=== PATIENT | female | born 1970 | race African-American/Black ===

== ENCOUNTER 2018-07-03 15:06 | Emergency (ER) | payer MEDICAID ==
[2018-07-03] MEDS ORDERED: ONDANSETRON 4 MG TAB.RAPDIS PO ONE (16:35)
--- NOTE | 2018-07-03 16:35 | ER Document Report ---
ED Medical Screen (RME) - General Chief Complaint: Weakness Stated Complaint: WEAKNESS Time Seen by Provider: 07/03/18 16:08 Primary Care Provider: LAWSON SOMERS MD [Primary Care Provider] - Follow up as needed Notes: 48-year-old female states she experienced a seizure at 1230 this afternoon. She states that her separate episode in 2 weeks. She is also very weak. Patient states that every episode she has an aura and each time it is different. She could not clarify whether one preceded this most recent seizure. She states she saw a neurologist 2 years ago, had an EEG done, and was told she does not have epilepsy but was prescribed "Adderall and something for sleep ". She denies any fevers or chills, complains of blurred vision, complains of dizziness, lightheadedness/ BLE weakness/ and feeling "loopy ". I have greeted and performed a rapid initial assessment of this patient. A comprehensive ED assessment and evaluation of the patient, analysis of test results and completion of medical decision making process will be conducted by an additional ED providers. TRAVEL OUTSIDE OF THE [place] IN LAST 30 DAYS: No - Related Data Allergies/Adverse Reactions: Penicillins Allergy (Verified 11/23/14 23:33) Past Medical History - Social History Frequency of alcohol use: Occasional Drug Abuse: None Neurological Medical History: Reports: Hx Seizures Renal/ Medical History: Denies: Hx Peritoneal Dialysis Past Surgical History: Reports: Hx Tubal Ligation - Immunizations Hx Diphtheria, Pertussis, Tetanus Vaccination: Yes Physical Exam - Vital signs Vitals: Temp Pulse Resp BP Pulse Ox 98.7 F 88 16 120/71 97 07/03/18 15:14 07/03/18 15:14 07/03/18 15:14 07/03/18 15:14 07/03/18 15:14 - Neurological Cognition: Inattentive Manning Coma Scale Eye Opening: Spontaneous Manning Coma Scale Verbal: Oriented Ximena Coma Scale Motor: Obeys Commands Manning Coma Scale Total: 15 Speech: Normal Cranial nerves: Normal Motor strength normal: LUE - 4/5 effort dependent, RUE - 4/5 effort dependent, LLE - 3/5 effort dependent, RLE - 3/5 effort dependent Additional motor exam normals: Equal detention worker - 4/5, Dorsiflexion - Did not participate secondary to effort Course - Vital Signs Vital signs: Temp Pulse Resp BP Pulse Ox 98.7 F 88 16 120/71 97 07/03/18 15:14 07/03/18 15:14 07/03/18 15:14 07/03/18 15:14 07/03/18 15:14 Doctor's Discharge - Discharge Referrals: LAWSON SOMERS MD [Primary Care Provider] - Follow up as needed
[2018-07-03 17:38] LABS: APPEARANCE,URINE CLEAR; BILIRUBIN,URINE NEGATIVE (NEGATIVE); COLOR,URINE YELLOW; GLUCOSE, URINE NEGATIVE (NEGATIVE); KETONES,URINE NEGATIVE (NEGATIVE); LEUKOCYTE ESTERASE,URINE NEGATIVE (NEGATIVE); NITRITE,URINE NEGATIVE (NEGATIVE); PROTEIN,URINE NEGATIVE (NEGATIVE); URINE SPECIFIC GRAVITY 1.024
[2018-07-03 17:51] LABS: URINE AMPHETAMINES SCREEN UNCONFIRMED POSITIVE; URINE BARBITURATES SCREEN NEGATIVE; URINE BENZODIAZEPINES SCREEN NEGATIVE; URINE COCAINE SCREEN NEGATIVE; URINE MARIJUANA (THC) SCREEN UNCONFIRMED POSITIVE; URINE METHADONE SCREEN NEGATIVE; URINE PHENCYCLIDINE SCREEN NEGATIVE
--- NOTE | 2018-07-03 19:39 | ER Document Report ---
ED General - General Chief Complaint: Weakness Stated Complaint: WEAKNESS Time Seen by Provider: 07/03/18 16:08 Primary Care Provider: LAWSON SOMERS MD [Primary Care Provider] - Follow up as needed LISETH GARDINER MD [NO LOCAL MD] - Follow up in 3-5 days Notes: 48-year-old female patient emergency department for evaluation of seizure. Patient has a known history of seizures. States that she has been to the beach today. Had some marijuana. Had a seizure while her daughter was driving her back into town. Has not had a seizure in a long time. Currently not on any medications. Denies any injuries. Feels back to normal at this time. States that she was prescribed some Adderall for adult ADHD but did not like the way it made her feel. TRAVEL OUTSIDE OF THE [place] IN LAST 30 DAYS: No - HPI Onset: Just prior to arrival Quality of pain: No pain Severity: Mild Pain Level: Denies Associated symptoms: None - Related Data Allergies/Adverse Reactions: Penicillins Allergy (Verified 11/23/14 23:33) Past Medical History - General Information source: Patient - Social History Smoking Status: Current Every Day Smoker Frequency of alcohol use: Occasional Drug Abuse: None Lives with: Family Family History: Reviewed & Not Pertinent Patient has suicidal ideation: No Patient has homicidal ideation: No Neurological Medical History: Reports: Hx Seizures Renal/ Medical History: Denies: Hx Peritoneal Dialysis Past Surgical History: Reports: Hx Tubal Ligation - Immunizations Hx Diphtheria, Pertussis, Tetanus Vaccination: Yes Review of Systems - Review of Systems Notes: Constitutional: denies: Chills, Diaphoresis, Fever, Malaise, Weakness EENT: denies: Eye discharge, Blurred vision, Tearing, Double vision, Nose congestion, Nose discharge, Throat swelling, Mouth pain Cardiovascular: denies: Palpitations, Heart racing, Orthopnea, Dyspnea, Chest pain Respiratory: denies: Cough, Hurts to breathe, Wheezing, Shortness of breath Gastrointestinal: denies: Abdominal pain, Diarrhea, Nausea, Vomiting, Black stools, bright red blood in stool Genitourinary: denies: Burning, Dysuria, Discharge, Frequency, Flank pain, Hematuria Musculoskeletal: denies: Joint pain, Joint swelling, Muscle pain, Muscle stiffness, back pain Hematologic/Lymphatic: denies: Anemia, Easy bleeding, Easy bruising, Blood clots Neurological/Psychological: denies: Confusion, Dementia, Depression, Loss of consciousness. Positive for seizure Skin: No lesions, no masses, no skin breakdown, no abscesses Physical Exam - Vital signs Vitals: Temp Pulse Resp BP Pulse Ox 98.7 F 88 16 120/71 97 07/03/18 15:14 07/03/18 15:14 07/03/18 15:14 07/03/18 15:14 07/03/18 15:14 Interpretation: Normal - General General appearance: Appears well, Alert - HEENT Head: Normocephalic, Atraumatic Eyes: Normal Pupils: PERRL - Respiratory Respiratory status: No respiratory distress Chest status: Nontender Breath sounds: Normal Chest palpation: Normal - Cardiovascular Rhythm: Regular Heart sounds: Normal auscultation Murmur: No - Abdominal Inspection: Normal Distension: No distension Bowel sounds: Normal Tenderness: Nontender Organomegaly: No organomegaly - Back Back: Normal, Nontender - Extremities General upper extremity: Normal inspection, Nontender, Normal color, Normal ROM, Normal temperature General lower extremity: Normal inspection, Nontender, Normal color, Normal ROM, Normal temperature, Normal weight bearing. No: Lew's sign - Neurological Neuro grossly intact: Yes Cognition: Normal Orientation: AAOx4 Ximena Coma Scale Eye Opening: Spontaneous Ximena Coma Scale Verbal: Oriented Mackay Coma Scale Motor: Obeys Commands Mackay Coma Scale Total: 15 Speech: Normal Motor strength normal: LUE, RUE, LLE, RLE Sensory: Normal - Psychological Associated symptoms: Normal affect, Normal mood - Skin Skin Temperature: Warm Skin Moisture: Dry Skin Color: Normal Course - Re-evaluation Re-evalutation: 07/03/18 21:27 Laboratory 07/03/18 07/03/18 07/03/18 16:50 16:50 20:29 WBC 7.9 RBC 4.79 Hgb 14.8 Hct 43.1 MCV 90 MCH 30.9 MCHC 34.4 RDW 12.9 Plt Count 357 Seg Neutrophils % 55.7 Lymphocytes % 33.5 Monocytes % 5.6 Eosinophils % 4.7 Basophils % 0.5 Absolute Neutrophils 4.4 Absolute Lymphocytes 2.7 Absolute Monocytes 0.4 Absolute Eosinophils 0.4 Absolute Basophils 0.0 Sodium Potassium Chloride Carbon Dioxide Anion Gap BUN Creatinine Est GFR ( Amer) Est GFR (Non-Af Amer) Glucose Calcium Total Bilirubin Direct Bilirubin Neonat Total Bilirubin Neonat Direct Bilirubin Neonat Indirect Bili AST ALT Alkaline Phosphatase Total Protein Albumin Urine Color YELLOW Urine Appearance CLEAR Urine pH 6.0 Ur Specific [place] 1.024 Urine Protein NEGATIVE Urine Glucose (UA) NEGATIVE Urine Ketones NEGATIVE Urine Blood NEGATIVE Urine Nitrite NEGATIVE Urine Bilirubin NEGATIVE Urine Urobilinogen 2.0 H Ur Leukocyte Esterase NEGATIVE Urine WBC (Auto) 0 Urine RBC (Auto) 1 Squamous Epi Cells Auto 2 Urine Mucus (Auto) MANY Urine Ascorbic Acid NEGATIVE Urine HCG, Qual NEGATIVE Urine Opiates Screen NEGATIVE Urine Methadone Screen NEGATIVE Ur Barbiturates Screen NEGATIVE Ur Phencyclidine Scrn NEGATIVE Ur Amphetamines Screen UNCONFIRMED POSITIVE U Benzodiazepines Scrn NEGATIVE Urine Cocaine Screen NEGATIVE U Marijuana (THC) Screen UNCONFIRMED POSITIVE 07/03/18 20:29 WBC RBC Hgb Hct MCV MCH MCHC RDW Plt Count Seg Neutrophils % Lymphocytes % Monocytes % Eosinophils % Basophils % Absolute Neutrophils Absolute Lymphocytes Absolute Monocytes Absolute Eosinophils Absolute Basophils Sodium 139.0 Potassium 4.3 Chloride 105 Carbon Dioxide 25 Anion Gap 9 BUN 13 Creatinine 0.65 Est GFR ( Amer) > 60 Est GFR (Non-Af Amer) > 60 Glucose 89 Calcium 9.5 Total Bilirubin 0.3 Direct Bilirubin 0.1 Neonat Total Bilirubin Not Reportable Neonat Direct Bilirubin Not Reportable Neonat Indirect Bili Not Reportable AST 23 ALT 48 Alkaline Phosphatase 87 Total Protein 6.9 Albumin 4.1 Urine Color Urine Appearance Urine pH Ur Specific [place] Urine Protein Urine Glucose (UA) Urine Ketones Urine Blood Urine Nitrite Urine Bilirubin Urine Urobilinogen Ur Leukocyte Esterase Urine WBC (Auto) Urine RBC (Auto) Squamous Epi Cells Auto Urine Mucus (Auto) Urine Ascorbic Acid Urine HCG, Qual Urine Opiates Screen Urine Methadone Screen Ur Barbiturates Screen Ur Phencyclidine Scrn Ur Amphetamines Screen U Benzodiazepines Scrn Urine Cocaine Screen U Marijuana (THC) Screen 07/03/18 21:29 Patient with long-standing history of seizures. Witnessed seizure today. Marijuana positive. Amphetamine positive. Patient advised to not engage in this activity. At this time I will recommend she follow-up with a neurologist as soon as possible. Avoid driving - Vital Signs Vital signs: Temp Pulse Resp BP Pulse Ox 97.8 F 65 16 114/73 98 07/03/18 21:43 07/03/18 21:43 07/03/18 15:14 07/03/18 21:43 07/03/18 21:43 - Laboratory Result Diagrams: 07/03/18 20:29 07/03/18 20:29 Laboratory results interpreted by me: 07/03/18 16:50 Urine Urobilinogen 2.0 H Discharge - Discharge Clinical Impression: Seizure Condition: Good Disposition: HOME, SELF-CARE Instructions: Seizure, Known Epileptic ([facility]) Additional Instructions: No driving until cleared by neurologist. Take medication as prescribed. Follow-up with your neurologist as soon as possible. Prescriptions: Levetiracetam [Keppra 500 mg Tablet] 500 mg PO Q12 30 Days #60 tablet Forms: Return to Work Referrals: LAWSON SOMERS MD [Primary Care Provider] - Follow up as needed LISETH GARDINER MD [NO LOCAL MD] - Follow up in 3-5 days
[2018-07-03 20:40] LABS: ABSOLUTE EOSINOPHILS # (AUTO) 0.4 10^3/uL (0.0-0.6); ABSOLUTE LYMPHOCYTES (AUTO) 2.7 10^3/uL (0.5-4.7); ABSOLUTE MONOCYTES (AUTO) 0.4 10^3/uL (0.1-1.4); ABSOLUTE NEUT (AUTO) 4.4 10^3/uL (1.7-8.2); BASOPHILS % (AUTO) 0.5 % (0-2); EOSINOPHILS % (AUTO) 4.7 % (0-6); HEMATOCRIT 43.1 % (36.0-47.0); HEMOGLOBIN 14.8 g/dL (12.0-15.5); LYMPHOCYTES % (AUTO) 33.5 % (13-45); MEAN CORPUSCULAR HEMOGLOBIN 30.9 pg (27.0-33.4); MEAN CORPUSCULAR HGB CONC 34.4 g/dL (32.0-36.0); MEAN CORPUSCULAR VOLUME 90 fl (80-97); MONOCYTES % (AUTO) 5.6 % (3-13); PLATELET COUNT 357 10^3/uL (150-450); RED BLOOD COUNT 4.79 10^6/uL (3.72-5.28); RED CELL DISTRIBUTION WIDTH 12.9 % (11.5-14.0); SEGMENTED NEUTROPHILS % (AUTO) 55.7 % (42-78); TOTAL CELLS COUNTED % (AUTO) 100 %; WHITE BLOOD COUNT 7.9 10^3/uL (4.0-10.5)
[2018-07-03 20:55] LABS: ALANINE AMINOTRANSFERASE 48 U/L (9-52); ALBUMIN 4.1 g/dL (3.5-5.0); ALKALINE PHOSPHATASE 87 U/L (38-126); ANION GAP 9 (5-19); ASPARTATE AMINO TRANSFERASE 23 U/L (14-36); BILIRUBIN,DIRECT 0.1 mg/dL (0.0-0.4); BILIRUBIN,TOTAL 0.3 mg/dL (0.2-1.3); BLOOD UREA NITROGEN 13 mg/dL (7-20); CALCIUM 9.5 mg/dL (8.4-10.2); CARBON DIOXIDE 25 mmol/L (22-30); CHLORIDE 105 mmol/L (98-107); GLUCOSE 89 mg/dL (75-110); POTASSIUM 4.3 mmol/L (3.6-5.0); TOTAL PROTEIN 6.9 g/dL (6.3-8.2)
[2018-07-03] MEDS ORDERED: LEVETIRACETAM 500 MG TABLET PO ONE (21:32)
[2018-07-03 21:48] VITALS: BP 114/73
== END 2018-07-03 22:15 | disposition home or self-care (01) ==
LOC: ER 15:06
DX: R56.9 Unspecified convulsions (principal); F17.200 Nicotine dependence, unspecified, uncomplicated
CPT/HCPCS: 99284; 36415; 85025; 81025; 80053; 81001; 80307; S0119

== ENCOUNTER 2018-07-06 14:35 | Emergency (ER) | payer SELFPAY ==
[2018-07-06] MEDS ORDERED: ONDANSETRON HCL INJ/PF 4 MG/2 ML SDV IV ONE (15:50)
[2018-07-06] MEDS ORDERED: KETOROLAC TROMETHAMINE INJ/PF 30 MG/1 ML SDV IV ONE (15:50)
[2018-07-06] MEDS ORDERED: MORPHINE SULFATE 10 MG/ML INJ IV ONE (15:50)
--- NOTE | 2018-07-06 15:53 | ER Document Report ---
ED Medical Screen (RME) - General Chief Complaint: Lower Abdominal Pain Stated Complaint: ABDOMINAL PAIN Time Seen by Provider: 07/06/18 15:50 Primary Care Provider: LAWSON SOMERS MD [Primary Care Provider] - Follow up as needed Notes: Chief complaint: Abdominal pain History of complain:( obtained from----patient) 48 years old female with a history of seizure disorder not taking any medication presents today with sudden onset of sharp lower abdominal pain of moderate to severe in intensity. Associated with nausea no vomiting. No dysuria frequency urgency denies any diarrhea. PHYSICAL EXAMINATION: GENERAL: Seems to be in moderate to severe discomfort HEAD: Atraumatic, normocephalic. EYES: Pupils equal round and reactive to light, extraocular movements intact, conjunctiva are normal. ENT: Nares patent, oropharynx clear without exudates. Moist mucous membranes. NECK: Normal range of motion, supple without lymphadenopathy LUNGS: Breath sounds clear to auscultation bilaterally and equal. No wheezes rales or rhonchi. HEART: Regular rate and rhythm without murmurs ABDOMEN: Soft, diffuse lower abdominal tenderness nondistended abdomen. No guarding, no rebound. No masses appreciated. Examination of genitals-deferred Dictation was performed using [employer] voice recognition software TRAVEL OUTSIDE OF THE [place] IN LAST 30 DAYS: No - Related Data Allergies/Adverse Reactions: Penicillins Allergy (Verified 07/06/18 14:36) Past Medical History - Social History Chew tobacco use (# tins/day): No Frequency of alcohol use: Social Drug Abuse: Marijuana Neurological Medical History: Reports: Hx Seizures Renal/ Medical History: Denies: Hx Peritoneal Dialysis Past Surgical History: Reports: Hx Tubal Ligation - Immunizations Hx Diphtheria, Pertussis, Tetanus Vaccination: Yes Physical Exam - Vital signs Vitals: Temp Pulse Resp BP Pulse Ox 98.7 F 76 18 112/71 100 07/06/18 14:44 07/06/18 14:44 07/06/18 14:44 07/06/18 14:44 07/06/18 14:44 Course - Vital Signs Vital signs: Temp Pulse Resp BP Pulse Ox 98.7 F 76 18 112/71 100 07/06/18 14:44 07/06/18 14:44 07/06/18 14:44 07/06/18 14:44 07/06/18 14:44 Doctor's Discharge - Discharge Referrals: LAWSON SOMERS MD [Primary Care Provider] - Follow up as needed
[2018-07-06 16:51] LABS: ABSOLUTE BASOPHILS # (AUTO) 0.1 10^3/uL (0.0-0.2); ABSOLUTE EOSINOPHILS # (AUTO) 0.2 10^3/uL (0.0-0.6); ABSOLUTE LYMPHOCYTES (AUTO) 1.6 10^3/uL (0.5-4.7); ABSOLUTE MONOCYTES (AUTO) 0.5 10^3/uL (0.1-1.4); ABSOLUTE NEUT (AUTO) 7.9 10^3/uL (1.7-8.2); BASOPHILS % (AUTO) 1.2 % (0-2); EOSINOPHILS % (AUTO) 1.8 % (0-6); HEMATOCRIT 40.3 % (36.0-47.0); LYMPHOCYTES % (AUTO) 15.2 % (13-45); MEAN CORPUSCULAR HEMOGLOBIN 31.4 pg (27.0-33.4); MEAN CORPUSCULAR HGB CONC 34.7 g/dL (32.0-36.0); MEAN CORPUSCULAR VOLUME 90 fl (80-97); MONOCYTES % (AUTO) 4.4 % (3-13); PLATELET COUNT 349 10^3/uL (150-450); RED BLOOD COUNT 4.46 10^6/uL (3.72-5.28); RED CELL DISTRIBUTION WIDTH 12.4 % (11.5-14.0); SEGMENTED NEUTROPHILS % (AUTO) 77.4 % (42-78); TOTAL CELLS COUNTED % (AUTO) 100 %; WHITE BLOOD COUNT 10.2 10^3/uL (4.0-10.5)
[2018-07-06 17:08] LABS: ALANINE AMINOTRANSFERASE 25 U/L (9-52); ALKALINE PHOSPHATASE 79 U/L (38-126); ANION GAP 9 (5-19); ASPARTATE AMINO TRANSFERASE 22 U/L (14-36); BILIRUBIN,DIRECT 0.2 mg/dL (0.0-0.4); BILIRUBIN,TOTAL 0.3 mg/dL (0.2-1.3); BLOOD UREA NITROGEN 11 mg/dL (7-20); CALCIUM 9.6 mg/dL (8.4-10.2); CARBON DIOXIDE 25 mmol/L (22-30); CHLORIDE 105 mmol/L (98-107); GLUCOSE 95 mg/dL (75-110); LIPASE 40.2 U/L (23-300); POTASSIUM 4.7 mmol/L (3.6-5.0); SODIUM 139.3 mmol/L (137-145); TOTAL PROTEIN 6.8 g/dL (6.3-8.2)
--- NOTE | 2018-07-06 18:14 | ER Document Report ---
ED GI/ - General Chief Complaint: Lower Abdominal Pain Stated Complaint: ABDOMINAL PAIN Time Seen by Provider: 07/06/18 18:14 Primary Care Provider: LAWSON SOMERS MD [Primary Care Provider] - Follow up as needed Mode of Arrival: Ambulatory Information source: Patient Notes: HISTORY OF PRESENT ILLNESS: Patient is a 48-year-old female with a past medical history of multiple psychiatric diagnoses as well as seizure disorder and ovarian cysts who presents with lower abdominal discomfort that started yesterday and worsened today. Location: Lower abdomen, suprapubic Onset: Gradual Alleviation: None Provocation: Movement Quality: Aching, cramping Radiation: None Severity: Moderate Timing: Intermittent History of abdominal surgery: None Associated symptoms: No fevers or chills, no vaginal bleeding or discharge, no nausea or vomiting, no diarrhea or constipation Last bowel movement: Today and normal REVIEW OF SYSTEMS: CONSTITUTIONAL : Denies fever or chills, no sweats. Denies recent illness. EENT: Denies eye, ear, throat, or mouth pain or symptoms. Denies nasal or sinus congestion. CARDIOVASCULAR: Denies chest pain. Denies swelling of the legs. RESPIRATORY: Denies cough, cold, or chest congestion. Denies shortness of breath or difficulty breathing. Denies wheezing. GASTROINTESTINAL: Positive for abdominal pain. Denies nausea, vomiting, or diarrhea. Denies constipation. GENITOURINARY: Denies difficulty urinating, painful urination, burning, frequency, or blood in urine. FEMALE GENITOURINARY: Denies vaginal bleeding, abnormal or irregular periods. MUSCULOSKELETAL: Denies neck or back pain or joint pain or swelling. SKIN: Denies rash or skin lesions. HEMATOLOGIC : Denies easy bruising or bleeding. LYMPHATIC: Denies swollen, enlarged glands. NEUROLOGICAL: Denies altered mental status or loss of consciousness. Denies h eadache. Denies weakness or paralysis or loss of use of either side. Denies problems with gait or speech. Denies sensory or motor loss. PSYCHIATRIC: Denies anxiety or stress or depression. All other systems reviewed and negative. PHYSICAL EXAMINATION: GENERAL: Well-appearing, well-nourished and in no acute distress. HEAD: Atraumatic, normocephalic. No scalp deformity, depression, or crepitance. EYES: Pupils are 3 mm and equal/round/reactive to light, extraocular movements intact, sclera anicteric, conjunctiva are normal. ENT: Nares patent bilaterally, oropharynx. Moist mucous membranes. No tonsil hypertrophy. NECK: Normal range of motion, supple without lymphadenopathy. LUNGS: Breath sounds present, equal, and clear to auscultation bilaterally. No wheezes, rales, or rhonchi. HEART: Regular rate and rhythm without murmurs, rubs, or gallops. 2+ peripheral pulses. Normal capillary refill. ABDOMEN: Soft and nondistended, moderate suprapubic tenderness on palpation, no peritoneal signs. Normoactive bowel sounds. No guarding, no rebound. No masses appreciated. BACK: Normal contour, no midline tenderness. Rectal exam deferred. GENITAL/PELVIC: Deferred. EXTREMITIES: Normal range of motion, no pitting or edema. No cyanosis. NEUROLOGICAL: No focal neurological deficits. Moves all extremities spontaneously and on command. PSYCH: Normal mood, normal affect. No suicidal thoughts/ideations. No homocidal thoughts/ideations. No hallucinations. SKIN: Warm, dry, normal turgor, no rashes or lesions noted. ASSESSMENT AND PLAN: This patient is a 48-year-old female who presents with lower abdominal pain that could represent ovarian cyst versus cystitis versus UTI versus colitis versus enteritis versus much less likely diverticulitis or appendicitis. 1. Will blood work most far is unremarkable, urinalysis is still pending. 2. Will obtain transvaginal ultrasound and reassess. TRAVEL OUTSIDE OF THE [place] IN LAST 30 DAYS: No - Related Data Allergies/Adverse Reactions: Penicillins Allergy (Verified 07/06/18 14:36) Past Medical History - General Information source: Patient - Social History Smoking Status: Current Every Day Smoker Chew tobacco use (# tins/day): No Frequency of alcohol use: Social Drug Abuse: Marijuana Lives with: Family Family History: Reviewed & Not Pertinent Patient has suicidal ideation: No Patient has homicidal ideation: No - Past Medical History Cardiac Medical History: Reports: None Pulmonary Medical History: Reports: None EENT Medical History: Reports: None Neurological Medical History: Reports: Hx Seizures Endocrine Medical History: Reports: None Renal/ Medical History: Reports: None. Denies: Hx Peritoneal Dialysis Malignancy Medical History: Reports: None GI Medical History: Reports: None Musculoskeletal Medical History: Reports None Skin Medical History: Reports None Psychiatric Medical History: Reports: Hx Attention Deficit Hyperactivity Disorder, Hx Bipolar Disorder, Hx Schizophrenia Traumatic Medical History: Reports: None Infectious Medical History: Reports: None Surgical Hx: Negative Past Surgical History: Reports: Hx Tubal Ligation - Immunizations Immunizations up to date: Yes Hx Diphtheria, Pertussis, Tetanus Vaccination: Yes History of Influenza Vaccine for 02/2017 - 07/2017 Season: Unknown Physical Exam - Vital signs Vitals: Temp Pulse Resp BP Pulse Ox 98.7 F 76 18 112/71 100 07/06/18 14:44 07/06/18 14:44 07/06/18 14:44 07/06/18 14:44 07/06/18 14:44 Course - Re-evaluation Re-evalutation: 07/06/18 23:59 Urinalysis and blood work are normal. Ultrasound shows small left ovarian cyst but otherwise unremarkable. 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 Patient voices both understanding and agreeing with the plan. - Vital Signs Vital signs: Temp Pulse Resp BP Pulse Ox 98.2 F 65 17 107/57 L 95 07/06/18 22:15 07/06/18 22:15 07/06/18 22:15 07/06/18 22:15 07/06/18 22:15 - Laboratory Result Diagrams: 07/06/18 16:33 07/06/18 16:33 Laboratory results interpreted by me: 07/06/18 07/06/18 16:33 22:00 Ammonia < 8.7 L Urine Ketones 20 H Urine Urobilinogen 2.0 H - Diagnostic Test Radiology reviewed: Image reviewed, Reports reviewed Discharge - Discharge Clinical Impression: Abdominal pain Qualifiers: Abdominal location: lower abdomen, unspecified Qualified Code(s): R10.30 - Lower abdominal pain, unspecified Ovarian cyst Qualifiers: Laterality: left Qualified Code(s): N83.202 - Unspecified ovarian cyst, left side Condition: Good Disposition: HOME, SELF-CARE Instructions: Abdominal Pain ([facility]), Ovarian Cyst ([facility]) Additional Instructions: You have been evaluated in the Emergency Department for abdominal pain related to an ovarian cyst. While here, you had an ultrasound along with blood work and it is now safe to be discharged home. 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 Return to the Emergency Department if you experience worsening pain, heavy vaginal bleeding/discharge, or any other concerning symptoms. Prescriptions: Diclofenac Sodium 75 mg PO BID #30 tablet. Referrals: LAWSON SOMERS MD [Primary Care Provider] - Follow up as needed Print Language: Hungarian
[2018-07-06] MEDS ORDERED: NORMAL SALINE 1000 ML 1,000 ML IV PRN (18:39)
--- NOTE | 2018-07-06 20:46 | RADIOLOGY REPORT (SQ) ---
US PELVIS HISTORY: Pelvic pain. COMPARISON: None. TECHNIQUE: Grayscale, color Doppler, and spectral Doppler ultrasound images of the pelvis were obtained. FINDINGS: The uterus measures 10.0 x 6.9 x 5.0 cm. Endometrium measures 6 mm in thickness. The cervix is 2.8 cm in length. The right ovary measures 2.9 x 1.9 x 2.1 cm and the left ovary measures 4.2 x 2.6 x 1.9 cm. There is a 1.6 x 1.7 x 1.1 cm cyst in the left ovary. Normal color Doppler blood flow is seen in both ovaries. IMPRESSION: 1.7 cm left ovarian cyst. Otherwise unremarkable study.
[2018-07-06 22:16] LABS: APPEARANCE,URINE CLOUDY; BILIRUBIN,URINE NEGATIVE (NEGATIVE); COLOR,URINE YELLOW; GLUCOSE, URINE NEGATIVE (NEGATIVE); KETONES,URINE 20 mg/dL (NEGATIVE); LEUKOCYTE ESTERASE,URINE NEGATIVE (NEGATIVE); NITRITE,URINE NEGATIVE (NEGATIVE); PROTEIN,URINE NEGATIVE (NEGATIVE); URINE SPECIFIC GRAVITY 1.021
[2018-07-06 22:30] LABS: URINE AMPHETAMINES SCREEN NEGATIVE; URINE BARBITURATES SCREEN NEGATIVE; URINE BENZODIAZEPINES SCREEN NEGATIVE; URINE COCAINE SCREEN NEGATIVE; URINE MARIJUANA (THC) SCREEN UNCONFIRMED POSITIVE; URINE METHADONE SCREEN NEGATIVE; URINE PHENCYCLIDINE SCREEN NEGATIVE
[2018-07-07 00:15] VITALS: BP 97/51
== END 2018-07-07 00:25 | disposition home or self-care (01) ==
LOC: ER 14:35
DX: N83.202 Unspecified ovarian cyst, left side (principal); F17.200 Nicotine dependence, unspecified, uncomplicated; Z98.51 Tubal ligation status; Z88.0 Allergy status to penicillin
CPT/HCPCS: 99284; 96361; 96374; 96375; 36415; 82140; 83690; 85025; 81025; 80053; 81001; 80307; 76830; J1885; J2270; J2405; J7030

== ENCOUNTER 2019-04-14 18:20 | Emergency (ER) | payer SELFPAY ==
--- NOTE | 2019-04-14 20:39 | ER Document Report ---
ED Medical Screen (RME) - General Chief Complaint: General Weakness Stated Complaint: DIZZINESS,LIGHT HEADNESS,LEFT SIDE NUMBNESS Time Seen by Provider: 04/14/19 20:33 Primary Care Provider: LAWSON SOMERS MD [Primary Care Provider] - Follow up as needed Mode of Arrival: Medic Information source: Patient Notes: 49-year-old female presented to ED for complaint of weakness starting yesterday. She states it was difficult to wean the left eye or to smile straight with the left side of her face. She states she also felt like the left side of her body was weaker. She states she is also had water running out of her left eye. She states the left side of her face is numb. She is alert oriented respirations regular nonlabored speaking in full sentences. States her last menstrual cycle was last week. I have greeted and performed a rapid initial assessment of this patient. A comprehensive ED assessment and evaluation of the patient, analysis of test re sults and completion of medical decision making process will be conducted by an additional ED providers. TRAVEL OUTSIDE OF THE [place] IN LAST 30 DAYS: No - Related Data Allergies/Adverse Reactions: Penicillins Allergy (Verified 07/06/18 14:36) Home Medications: Keppra Past Medical History Neurological Medical History: Reports: Hx Seizures Renal/ Medical History: Denies: Hx Peritoneal Dialysis Psychiatric Medical History: Reports: Hx Attention Deficit Hyperactivity Disorder, Hx Bipolar Disorder, Hx Schizophrenia Past Surgical History: Reports: Hx Tubal Ligation - Immunizations Immunizations up to date: Yes Hx Diphtheria, Pertussis, Tetanus Vaccination: Yes Physical Exam - Vital signs Vitals: Temp Pulse Resp BP Pulse Ox 98.6 F 86 18 137/82 H 98 04/14/19 18:34 04/14/19 18:34 04/14/19 18:34 04/14/19 18:34 04/14/19 18:34 Course - Vital Signs Vital signs: Temp Pulse Resp BP Pulse Ox 98.6 F 86 18 137/82 H 98 04/14/19 19:29 04/14/19 18:34 04/14/19 19:29 04/14/19 18:34 04/14/19 19:29 Doctor's Discharge - Discharge Referrals: LAWSON SOMERS MD [Primary Care Provider] - Follow up as needed
[2019-04-14 21:06] LABS: APPEARANCE,URINE SLIGHTLY-CLOUDY; BILIRUBIN,URINE NEGATIVE (NEGATIVE); COLOR,URINE YELLOW; GLUCOSE, URINE NEGATIVE (NEGATIVE); KETONES,URINE NEGATIVE (NEGATIVE); PROTEIN,URINE NEGATIVE (NEGATIVE); URINE SPECIFIC GRAVITY 1.011; UROBILINOGEN,URINE NEGATIVE mg/dL (<2.0)
[2019-04-14 21:14] LABS: ABSOLUTE BASOPHILS # (AUTO) 0.1 10^3/uL (0.0-0.2); ABSOLUTE EOSINOPHILS # (AUTO) 0.4 10^3/uL (0.0-0.6); ABSOLUTE LYMPHOCYTES (AUTO) 2.2 10^3/uL (0.5-4.7); ABSOLUTE MONOCYTES (AUTO) 0.6 10^3/uL (0.1-1.4); ABSOLUTE NEUT (AUTO) 5.1 10^3/uL (1.7-8.2); BASOPHILS % (AUTO) 1.2 % (0-2); EOSINOPHILS % (AUTO) 4.7 % (0-6); HEMATOCRIT 42.9 % (36.0-47.0); HEMOGLOBIN 14.7 g/dL (12.0-15.5); LYMPHOCYTES % (AUTO) 25.9 % (13-45); MEAN CORPUSCULAR HEMOGLOBIN 30.8 pg (27.0-33.4); MEAN CORPUSCULAR HGB CONC 34.2 g/dL (32.0-36.0); MEAN CORPUSCULAR VOLUME 90 fl (80-97); MONOCYTES % (AUTO) 6.9 % (3-13); PLATELET COUNT 371 10^3/uL (150-450); RED BLOOD COUNT 4.77 10^6/uL (3.72-5.28); RED CELL DISTRIBUTION WIDTH 12.6 % (11.5-14.0); SEGMENTED NEUTROPHILS % (AUTO) 61.3 % (42-78); TOTAL CELLS COUNTED % (AUTO) 100 %; WHITE BLOOD COUNT 8.4 10^3/uL (4.0-10.5)
[2019-04-14 21:16] LABS: ALBUMIN 4.1 g/dL (3.5-5.0); ALKALINE PHOSPHATASE 66 U/L (38-126); ANION GAP 8 (5-19); ASPARTATE AMINO TRANSFERASE 18 U/L (14-36); BILIRUBIN,DIRECT 0.1 mg/dL (0.0-0.4); BILIRUBIN,TOTAL 0.3 mg/dL (0.2-1.3); BLOOD UREA NITROGEN 13 mg/dL (7-20); CALCIUM 9.6 mg/dL (8.4-10.2); CARBON DIOXIDE 24 mmol/L (22-30); CHLORIDE 105 mmol/L (98-107); GLUCOSE 90 mg/dL (75-110); TOTAL PROTEIN 7.4 g/dL (6.3-8.2); URINE AMPHETAMINES SCREEN NEGATIVE; URINE BARBITURATES SCREEN NEGATIVE; URINE BENZODIAZEPINES SCREEN NEGATIVE; URINE COCAINE SCREEN NEGATIVE; URINE METHADONE SCREEN NEGATIVE; URINE PHENCYCLIDINE SCREEN NEGATIVE
[2019-04-14 21:17] LABS: URINE MARIJUANA (THC) SCREEN UNCONFIRMED POSITIVE
[2019-04-14] MEDS ORDERED: PREDNISONE 20 MG TABLET PO ONE (21:40)
[2019-04-14] MEDS ORDERED: ACYCLOVIR 200 MG CAPSULE PO ONE (21:43)
--- NOTE | 2019-04-14 21:47 | ER Document Report ---
ED General - General Chief Complaint: General Weakness Stated Complaint: DIZZINESS,LIGHT HEADNESS,LEFT SIDE NUMBNESS Time Seen by Provider: 04/14/19 20:33 Primary Care Provider: LAWSON SOMERS MD [Primary Care Provider] - Follow up as needed Mode of Arrival: Medic Notes: Ms. Allen is an otherwise healthy 49-year-old female who appears younger than stated age presenting to the ED for left facial weakness. Patient states she noted some of the symptoms yesterday morning after she went to brush her teeth. She was applying lip gloss and noted that her mouth was not closing perfectly e qual. Patient states that throughout the day today her left eye continue to tear and she feels as if she is not closing it as tight. When she was washing her face, she noted sensory deficits between the left and right side of her face. Patient denies any recent hiking, travel, exposure to ticks, or animals in the household such as dogs. She denies any fever, chills, changes in vision or other complaints. She endorses some diffuse weakness. However she also feels as if the left arm is slightly weaker than the right. Patient denies any difficulty ambulating. No fevers or chills, chest pain, abdominal pain, nausea, vomiting or diarrhea. TRAVEL OUTSIDE OF THE [place] IN LAST 30 DAYS: No - Related Data Allergies/Adverse Reactions: Penicillins Allergy (Verified 07/06/18 14:36) Home Medications: Keppra Past Medical History - General Information source: Patient - Social History Smoking Status: Current Every Day Smoker Family History: Reviewed & Not Pertinent Patient has suicidal ideation: No Patient has homicidal ideation: No Neurological Medical History: Reports: Hx Seizures Renal/ Medical History: Denies: Hx Peritoneal Dialysis Psychiatric Medical History: Reports: Hx Attention Deficit Hyperactivity Disorder, Hx Bipolar Disorder, Hx Schizophrenia Past Surgical History: Reports: Hx Tubal Ligation - Immunizations Immunizations up to date: Yes Hx Diphtheria, Pertussis, Tetanus Vaccination: Yes Review of Systems - Review of Systems Constitutional: See HPI EENT: No symptoms reported Cardiovascular: No symptoms reported Respiratory: No symptoms reported Gastrointestinal: No symptoms reported Genitourinary: No symptoms reported Female Genitourinary: No symptoms reported Musculoskeletal: No symptoms reported Skin: No symptoms reported Hematologic/Lymphatic: No symptoms reported Neurological/Psychological: See HPI Physical Exam - Vital signs Vitals: Temp Pulse Resp BP Pulse Ox 98.6 F 86 18 137/82 H 98 04/14/19 18:34 04/14/19 18:34 04/14/19 18:34 04/14/19 18:34 04/14/19 18:34 Interpretation: Normal - General General appearance: Appears well, Alert - HEENT Head: Normocephalic, Atraumatic Eyes: Normal Pupils: PERRL - Respiratory Respiratory status: No respiratory distress Chest status: Nontender Breath sounds: Normal Chest palpation: Normal - Cardiovascular Rhythm: Regular Heart sounds: Normal auscultation Murmur: No - Abdominal Inspection: Normal Distension: No distension Bowel sounds: Normal Tenderness: Nontender Organomegaly: No organomegaly - Back Back: Normal, Nontender - Extremities General upper extremity: Normal inspection, Nontender, Normal color, Normal ROM, Normal temperature General lower extremity: Normal inspection, Nontender, Normal color, Normal ROM, Normal temperature, Normal weight bearing. No: Lew's sign - Neurological Neuro grossly intact: Yes Cognition: Normal Orientation: AAOx4 Ximena Coma Scale Eye Opening: Spontaneous Ximena Coma Scale Verbal: Oriented Petroleum Coma Scale Motor: Obeys Commands Ximena Coma Scale Total: 15 Speech: Normal Cranial nerves: Facial palsy - Left facial palsy. Decreased wrinkles and left forehead, incomplete elevation of the left corner of the mouth and some decreased strength and closing the left eye in comparison to the right. Ongoing lacrimation throughout the examination of the left eye. Cerebellar coordination: Normal Motor strength normal: LUE, RUE, LLE, RLE Sensory: Normal - Psychological Associated symptoms: Normal affect, Normal mood - Skin Skin Temperature: Warm Skin Moisture: Dry Skin Color: Normal Course - Re-evaluation Re-evalutation: Patient is generally well-appearing and nontoxic. Initial vitals within normal limits. Differential diagnosis includes viral syndrome, Louis's palsy, CVA (unlikely) 04/14/19 21:48 Patient's physical examination is consistent with Louis's palsy. She is unable to wrinkle her forehead, has an incomplete smile on the left side with ongoing lacrimation and did some mild sensory deficit the left compared to the right. Her bilateral upper and lower extremity motor, and sensory examination is unremarkable with equal strength bilaterally. Low suspicion for CVA as the patient has no other risk factors at this point in time. No known bites or recent viral illness. Will administer prednisone as well as acyclovir here. Labs were ordered from triage and are otherwise unremarkable. Patient will be discharged with both prednisone as well as acyclovir. Patient given return precautions. - Vital Signs Vital signs: Temp Pulse Resp BP Pulse Ox 98.6 F 86 18 137/82 H 98 04/14/19 19:29 04/14/19 18:34 04/14/19 19:29 04/14/19 18:34 04/14/19 19:29 - Laboratory Result Diagrams: 04/14/19 20:51 04/14/19 20:51 Laboratory results interpreted by me: 04/14/19 04/14/19 20:51 20:51 Sodium 136.9 L Urine Blood SMALL H Discharge - Discharge Clinical Impression: Louis's palsy Condition: Good Disposition: HOME, SELF-CARE Instructions: Acyclovir (OM), Louis's Palsy (OM), Steroid Medication Additional Instructions: I would recommend that you take the medications as prescribed. You have Louis's palsy and this will likely resolve however some of the asymmetry in the face can be permanent. Follow-up with your primary care doctor. If you develop worsening symptoms, or any other concerns, return to the ED for further evaluation. Prescriptions: Acyclovir [Acyclovir 400 mg Tablet] 400 mg PO 5XD #50 tablet Methylprednisolone [Medrol Dosepack (4 mg/Tab) 21 Tab/Dosepak] 4 mg PO ASDIR PRN #21 tab.ds.[id number] PRN Reason: Referrals: LAWSON SOMERS MD [Primary Care Provider] - Follow up as needed
[2019-04-14 22:07] VITALS: BP 114/68
== END 2019-04-14 22:14 | disposition home or self-care (01) ==
LOC: ER 18:20
DX: G51.0 Bell's palsy (principal); R42 Dizziness and giddiness; Z88.0 Allergy status to penicillin; F17.200 Nicotine dependence, unspecified, uncomplicated
CPT/HCPCS: 99284; 36415; 85025; 80053; 81001; 80307; J7512

== ENCOUNTER 2020-04-15 16:19 | Emergency (ER) | payer SELFPAY ==
[2020-04-15 16:43] VITALS: BP 118/83
--- NOTE | 2020-04-15 16:50 | ER Document Report ---
ED Medical Screen (RME) - General Chief Complaint: Headache Stated Complaint: HEADACHE,COUGH,VOMITING,DIARRHEA Time Seen by Provider: 04/15/20 16:40 Primary Care Provider: LAWSON SOMERS MD [Primary Care Provider] - Follow up as needed Notes: HPI: 50-year-old female with multiple complaints. Patient became sick 7 days ago. States she had fevers, cough, headache, sore throat, vomiting initially. No longer vomiting or having abdominal pain but having diarrhea. All other family members are also sick with similar PHYSICAL EXAMINATION: No abdominal pain on palpation. Lung sounds are clear to auscultation regular rate and rhythm I have greeted and performed a rapid initial assessment of this patient. A comprehensive ED assessment and evaluation of the patient, analysis of test results and completion of medical decision making process will be conducted by an additional ED providers. TRAVEL OUTSIDE OF THE [place] IN LAST 30 DAYS: No - Related Data Allergies/Adverse Reactions: Penicillins Allergy (Verified 07/06/18 14:36) Past Medical History Neurological Medical History: Reports: Hx Seizures Renal/ Medical History: Denies: Hx Peritoneal Dialysis Psychiatric Medical History: Reports: Hx Attention Deficit Hyperactivity Disorder, Hx Bipolar Disorder, Hx Schizophrenia Past Surgical History: Reports: Hx Tubal Ligation - Immunizations Immunizations up to date: Yes Hx Diphtheria, Pertussis, Tetanus Vaccination: Yes Physical Exam - Vital signs Vitals: Temp Resp BP 98.2 F 20 118/83 04/15/20 16:43 04/15/20 16:43 04/15/20 16:43 Course - Vital Signs Vital signs: Temp Pulse Resp BP Pulse Ox 98.2 F 20 118/83 04/15/20 16:43 04/15/20 16:43 04/15/20 16:43 Doctor's Discharge - Discharge Referrals: LAWSON SOMERS MD [Primary Care Provider] - Follow up as needed
--- NOTE | 2020-04-15 17:42 | RADIOLOGY REPORT (SQ) ---
EXAM DESCRIPTION: CHEST SINGLE VIEW IMAGES COMPLETED DATE/TIME: 04/15/2020 5:28 pm REASON FOR STUDY: cough COMPARISON: 04/15/2011 EXAM PARAMETERS: NUMBER OF VIEWS: One view. TECHNIQUE: Single frontal radiographic view of the chest acquired. RADIATION DOSE: NA LIMITATIONS: None. FINDINGS: LUNGS AND PLEURA: No opacities, masses or pneumothorax. No pleural effusion. MEDIASTINUM AND HILAR STRUCTURES: No masses. Contour normal. HEART AND VASCULAR STRUCTURES: Heart normal in size. Normal vasculature. BONES: No acute findings. HARDWARE: None in the chest. OTHER: No other significant finding. IMPRESSION: 1. NO ACUTE RADIOGRAPHIC FINDING IN THE CHEST. TECHNICAL DOCUMENTATION: JOB ID: [id number] 2010 [employer]- All Rights Reserved Reading location - IP/workstation name: [email or web address]
[2020-04-15 20:04] LABS: A TYPE INFLUENZA AG NEGATIVE (NEGATIVE); B INFLUENZA AG NEGATIVE (NEGATIVE)
--- NOTE | 2020-04-15 20:27 | ER Document Report ---
HPI - HPI Time Seen by Provider: 04/15/20 16:40 Pain Level: 3 Notes: 50-year-old female patient presented to the emergency department with concern for Covid. Patient reports 7-day history of fatigue, body aches, headache, and loss of taste, loss of smell, cough, shortness of breath and generalized fatigue. Patient denies any fevers, vomiting or diarrhea. She denies any chronic medical conditions. She is not sure she may have gotten this from. Both of her children have similar symptoms. - ROS ROS below otherwise negative: Yes - CONSTITUTIONAL Constitutional: DENIES: Fever, Chills - EENT EENT: REPORTS: Sore Throat - NEURO Neurology: REPORTS: Headache - REPRODUCTIVE Reproductive: DENIES: : Past Medical History - General Information source: Patient - Social History Smoking Status: Never Smoker Family History: Reviewed & Not Pertinent Neurological Medical History: Reports: Hx Seizures Renal/ Medical History: Denies: Hx Peritoneal Dialysis Psychiatric Medical History: Reports: Hx Attention Deficit Hyperactivity Disorder, Hx Bipolar Disorder, Hx Schizophrenia Past Surgical History: Reports: Hx Tubal Ligation - Immunizations Immunizations up to date: Yes Hx Diphtheria, Pertussis, Tetanus Vaccination: Yes Vertical Provider Document - CONSTITUTIONAL Notes: PHYSICAL EXAMINATION: GENERAL: Well-appearing, well-nourished and in no acute distress. HEAD: Atraumatic, normocephalic. EYES: Pupils equal round extraocular movements intact, conjunctiva are normal. ENT: Nares patent NECK: Normal range of motion LUNGS: No respiratory distress, lung sounds clear and equal bilaterally. Musculoskeletal: Normal range of motion NEUROLOGICAL: Normal speech, normal gait. PSYCH: Normal mood, normal affect. SKIN: Warm, Dry, normal turgor, no rashes or lesions noted. - INFECTION CONTROL TRAVEL OUTSIDE OF THE [place] IN LAST 30 DAYS: No Course - Re-evaluation Re-evalutation: 04/15/20 20:43 Patient appears well, nontoxic, vital signs reviewed and are within normal limits. Influenza negative. COVID-19 test pending. Patient counseled on the need to self quarantine until test results have been received and patient has been asymptomatic for at least 72 hours. Patient verbalized understanding and agreement with same. ED return precautions discussed, patient verbalized understanding and agreement with same. - Vital Signs Vital signs: Temp Pulse Resp BP Pulse Ox 98.2 F 20 118/83 04/15/20 16:43 04/15/20 16:43 04/15/20 16:43 Discharge - Discharge Clinical Impression: Flulike illness, Encounter for laboratory testing for COVID-19 virus Condition: Stable Disposition: HOME, SELF-CARE Instructions: COVID-19 Guidance for Persons Under Investigation Additional Instructions: Take medication as prescribed. Continue taking Tylenol or ibuprofen for fever or body aches. Push fluids. Follow the advice of the health department as far as quarantine status. Return if worsening. Prescriptions: Prednisone [Deltasone 20 mg Tablet] 60 mg PO DAILY #15 tablet Referrals: LAWSON SOMERS MD [Primary Care Provider] - Follow up as needed
[2020-04-15] MEDS ORDERED: PREDNISONE 20 MG TABLET PO ONE (20:29)
== END 2020-04-15 20:59 | disposition home or self-care (01) ==
LOC: ER 16:19
DX: U07.1 COVID-19 (principal); R53.83 Other fatigue; M79.10 Myalgia, unspecified site; R51.9 Headache, unspecified; R43.8 Other disturbances of smell and taste; R05 Cough; R06.02 Shortness of breath
CPT/HCPCS: 99284; 87070; 87880; 87635; 87804; 71045; J7512; C9803